=== PATIENT | female | born 1940 | race Caucasian/White ===

== ENCOUNTER → 2016-10-03 | Outpatient (CLI) | payer OTHER, MEDICARE ==
[~2016-10-03] MED LIST: AMB5 OR; DILT-113 PO; EPP3/2 IM; FRS/40 PO; GABA-112 PO; LORA-741 PO; PRAV20TA PO; SERT-234 PO; TRAM-10 PO
[2016-10-03 13:27] LABS: ALT/SGPT 16 U/L (12-78); BLOOD UREA NITROGEN 34 mg/dl (7-18); BUN/CREATININE RATIO 28.3 (10-20); CALCIUM 9.6 mg/dl (8.5-10.1); CARBON DIOXIDE 30 mmol/L (21-32); CHLORIDE 105 mmol/L (98-107); CHOLESTEROL 200 mg/dl (0-200); GLUCOSE 72 mg/dl (70-99); POTASSIUM 4.5 mmol/L (3.5-5.1); SODIUM 141 mmol/L (136-145)
[2016-10-03 13:37] LABS: ALB/GLOB RATIO 0.8 (0.9-2); ALKALINE PHOSPHATASE 104 U/L (45-117); AST/SGOT 18 U/L (15-37); CHOLESTEROL/HDL RATIO 2.9; HDL CHOLESTEROL 68 mg/dl; LDL CHOLESTEROL CALCULATED 104 mg/dl; TRIGLYCERIDES 138 mg/dl (0-150); VERY LOW DENSITY LIPOPROT CALC 28 mg/dl
[2016-10-03 14:43] LABS: BASO % 0.6 %; BASO ABS # 0.04 K/uL (0-0.2); COMPLETE YES; EOS % 0.7 %; HEMATOCRIT 40.4 % (37-47); IG% 0.7 %; LYMPH % 33.7 %; LYMPH ABS # 2.27 K/uL (1.2-3.4); MEAN CELL VOLUME 93.5 fL (80-100); MEAN CORPUSCULAR HEMOGLOBIN 30.6 pg (25-34); MEAN CORPUSCULAR HGB CONC 32.7 g/dl (32-36); MEAN PLATELET VOLUME 10.3 fL (7.4-10.4); MONO % 7.3 %; PLATELET COUNT 287 K/uL (130-400); PLT ESTIMATE NORMAL; RED BLOOD COUNT 4.32 M/uL (4.2-5.4); WHITE BLOOD COUNT 6.73 K/uL (4.8-10.8)
== END | disposition home or self-care (01) ==
LOC: C.LABMFLN 10:03
PROVIDERS: ATTEND Family Medicine
DX: I10 Essential (primary) hypertension (principal); E78.5 Hyperlipidemia, unspecified

== ENCOUNTER → 2017-01-09 | Outpatient (CLI) | payer OTHER, MEDICARE | END | disposition home or self-care (01) | LOC: C.LABMFLN 08:23 | PROVIDERS: ATTEND Family Medicine | DX: R30.0 Dysuria (principal) ==

== ENCOUNTER 2017-09-29 14:10 | Inpatient (IN) | payer OTHER, MEDICARE ==
[~2017-09-29] VITALS: Ht 156.2 cm; Wt 118.6 kg
[2017-09-29] MEDS ORDERED: HYDROmorphone INJ 0.5 MG/0.5 ML SYR IV STA (14:42)
[2017-09-29] MEDS ORDERED: ONDANSETRON INJ 2 MG/ML 2 ML VIAL IV STA (14:42)
[2017-09-29 15:14] LABS: BASO % 0.5 %; BASO ABS # 0.03 K/uL (0-0.2); HEMATOCRIT 42.4 % (37-47); HEMOGLOBIN 14.1 g/dL (12.0-16.0); IG# 0.01 K/uL (0.00-0.02); LYMPH % 26.7 %; LYMPH ABS # 1.65 K/uL (1.2-3.4); MEAN CELL VOLUME 87.6 fL (80-100); MEAN CORPUSCULAR HEMOGLOBIN 29.1 pg (25-34); MEAN CORPUSCULAR HGB CONC 33.3 g/dl (32-36); MEAN PLATELET VOLUME 9.7 fL (7.4-10.4); MONO % 7.8 %; MONO ABS # 0.48 K/uL (0.11-0.59); NEUT % 64.8 %; NEUT ABS # 4.02 K/uL (1.4-6.5); PLATELET COUNT 295 K/uL (130-400); RED CELL DISTRIBUTION WIDTH CV 13.9 % (11.5-14.5); RED CELL DISTRIBUTION WIDTH SD 44.8 fL (36.4-46.3); WHITE BLOOD COUNT 6.19 K/uL (4.8-10.8)
[2017-09-29 15:35] LABS: ALBUMIN 3.7 gm/dl (3.4-5.0); ALT/SGPT 16 U/L (12-78); AST/SGOT 17 U/L (15-37); BLOOD UREA NITROGEN 28 mg/dl (7-18); CALCIUM 9.7 mg/dl (8.5-10.1); CARBON DIOXIDE 26 mmol/L (21-32); CREATININE 1.18 mg/dl (0.60-1.20); GLUCOSE 97 mg/dl (70-99); LIPASE 74 U/L (73-393); POTASSIUM 4.1 mmol/L (3.5-5.1); SODIUM 136 mmol/L (136-145)
[2017-09-29 15:38] LABS: ALKALINE PHOSPHATASE 112 U/L (45-117); TOTAL PROTEIN 7.9 gm/dl (6.4-8.2)
--- NOTE | 2017-09-29 16:15 | DIAGNOSTIC IMAGING REPORT ---
CHEST ONE VIEW PORTABLE CLINICAL HISTORY: Acute change in mental status COMPARISON STUDY: No previous studies for comparison. FINDINGS: The heart is mildly enlarged. There is slight interstitial prominence without evidence of overt failure. There is no focal pulmonary consolidation. There are no pleural effusions. There are postsurgical changes right shoulder arthroplasty.[ IMPRESSION: 1. Mild cardiomegaly and interstitial prominence 2. No evidence of focal pulmonary consolidation Electronically signed by: Enmanuel Kay M.D. 09/29/2017 4:13 PM Dictated Date/Time: 09/29/2017 4:13 PM
--- NOTE | 2017-09-29 16:16 | DIAGNOSTIC IMAGING REPORT ---
PELVIS 1 OR 2 VIEW ROUTINE CLINICAL HISTORY: Right hip pain COMPARISON STUDY: No previous studies for comparison. FINDINGS: Degenerative changes are present within the lower lumbar spine. No fractures are visualized. The joint spaces of each hip appear relatively well preserved for age. No fractures are evident. IMPRESSION: 1. No evidence of fracture. 2. No erosive or destructive changes are visualized Electronically signed by: Enmanuel Kay M.D. 09/29/2017 4:14 PM Dictated Date/Time: 09/29/2017 4:13 PM
--- NOTE | 2017-09-29 16:17 | DIAGNOSTIC IMAGING REPORT ---
LUMBAR SPINE 2 OR 3 VIEWS CLINICAL HISTORY: lower back pain COMPARISON STUDY: No previous studies for comparison. FINDINGS: No acute fractures are visualized. There is marked disc space narrowing at the L4-5 level. There is a grade 2 spondylolisthesis of L4 on L5. IMPRESSION: 1. No acute fractures 2. Grade 2 spondylolisthesis of L4 on L5 3. Disc space narrowing at the L4-5 level Electronically signed by: Enmanuel Kay M.D. 09/29/2017 4:15 PM Dictated Date/Time: 09/29/2017 4:14 PM
--- NOTE | 2017-09-29 16:18 | DIAGNOSTIC IMAGING REPORT ---
R FEMUR 2 VIEWS ROUTINE CLINICAL HISTORY: Right femur pain COMPARISON: None. DISCUSSION: No fractures are visualized. There are no dislocations. No destructive lesions are evident. There are postsurgical changes of a right knee arthroplasty. IMPRESSION: 1. Postsurgical changes 2. No fractures identified Electronically signed by: Enmanuel Kay M.D. 09/29/2017 4:16 PM Dictated Date/Time: 09/29/2017 4:16 PM
--- NOTE | 2017-09-29 17:24 | DIAGNOSTIC IMAGING REPORT ---
CT HEAD WITHOUT CONTRAST (CT) CLINICAL HISTORY: Acute change in mental status COMPARISON STUDY: No previous studies for comparison. TECHNIQUE: Axial CT of the brain is performed from the vertex to the skull base. IV contrast was not administered for this examination. A dose lowering technique was utilized adhering to the principles of ALARA. CT DOSE: 869.01 mGy.cm FINDINGS: No intra or extra-axial mass lesions are visualized. There is no CT evidence of acute cortical infarction. There is no evidence of midline shift. There is no acute hemorrhage. No calvarial fractures are visualized. There are moderate white matter hypodensities likely on a small vessel basis. There is no evidence of pathologic ventricular dilatation. There is mucosal disease within the sphenoid sinus. IMPRESSION: 1. No acute intracranial findings 2. Moderate white matter hypodensities likely on a small vessel basis 3. Sphenoid sinus mucosal thickening Electronically signed by: Enmanuel Kay M.D. 09/29/2017 5:23 PM Dictated Date/Time: 09/29/2017 5:21 PM
--- NOTE | 2017-09-29 17:35 | DIAGNOSTIC IMAGING REPORT ---
LUMBAR SPINE W/O CONTRAST CLINICAL HISTORY: 76 years-old Female with lower back pain . Acute low back pain without known injury COMPARISON: Lumbar spine radiographs 09/29/2017, MRI lumbar spine 01/16/2015. TECHNIQUE: Multiplanar, multi sequence MRI of the lumbar spine was performed without intravenous contrast. FINDINGS: Study is motion degraded. Patient obesity is noted. T2 hyperintense lesions of the left kidney are seen measuring up to 4.0 cm, possibly reflecting renal cysts. No aortic aneurysm identified. No pathologic adenopathy is seen. There is dextroscoliosis of the lumbar spine. 8 mm anterolisthesis L4 on L5 is unchanged. Endplate degenerative changes at the L4-L5 level also appears unchanged. No acute fracture or subluxation identified. 11 mm synovial cyst is noted posterior to the right L4-L5 facet. Signal within the imaged thoracic spinal cord is within normal limits. Conus medullaris terminates at the L1 level. Cauda equina appear unremarkable. The axial images are severely motion degraded. Gallbladder appears distended. T12-L1: Mild intervertebral disc space narrowing with posterior spondylitic spurring and moderate circumferential annular disc bulge causing mild central canal narrowing, this appears to have slightly progressed. There is also moderate facet arthrosis at this level. L1-L2: Mild intervertebral disc space narrowing with posterior spondylitic spurring, small circumferential annular disc bulge with moderate facet arthrosis and ligament of flavum thickening. Flattening of the ventral thecal sac without significant central canal stenosis. Mild bilateral foraminal narrowing. No significant change. L2-L3: Mild intervertebral disc space narrowing with posterior spondylitic spurring and small to moderate circumferential annular disc bulge and ligament of flavum thickening. Moderate facet arthropathy. There is flattening of the ventral thecal sac without significant central canal narrowing. There is moderate bilateral foraminal narrowing, not significantly change. L3-L4: Mild intervertebral disc space narrowing with posterior spondylitic spurring and circumferential annular disc bulge. Moderate facet arthrosis with ligamentum flavum thickening. Mild central canal, severe right and moderate to severe left foraminal stenosis. L4-L5: Moderate intervertebral disc space narrowing with posterior spondylitic spurring and disc space uncovering, possibly with central disc protrusion, evaluation limited secondary to motion artifact. Severe facet arthrosis and ligamentum flavum thickening with severe central canal narrowing and severe bilateral foraminal narrowing. L5-S1: Mild intervertebral disc space narrowing with spondylitic spurring, small posterior disc bulge and moderate facet arthrosis with ligamentum flavum thickening. No central canal stenosis. There is moderate bilateral foraminal narrowing, mildly worsened. IMPRESSION: 1. Very limited study secondary to patient motion. No acute fracture or subluxation identified. 2. 8 mm anterolisthesis L4 on L5 is unchanged, likely secondary to long-standing facet arthropathy. There is severe central canal with severe bilateral foraminal stenosis at this level. 3. Additional discogenic degenerative changes as described in detail above. The above report was generated using voice recognition software. It may contain grammatical, syntax or spelling errors. Electronically signed by: Juan Walker M.D. 09/29/2017 5:34 PM Dictated Date/Time: 09/29/2017 5:23 PM
--- NOTE | 2017-09-29 18:26 | EMERGENCY ROOM VISIT NOTE ---
History Report prepared by Veronica: Maria E Mancuso Under the Supervision of: Dr. Jovanny Goodrich D.O. First contact with patient: 14:25 Chief Complaint: PAIN (GENERALIZED) Stated Complaint: FOOT PAIN History of Present Illness The patient is a 76 year old female who presents to the Emergency Room with complaints of worsening right sided back pain starting 3 months ago radiating into her right leg. She was sent to the ED by her PCP. The pain goes down to her foot and up into her neck. The pain worsens with the cold. The patient has been diagnosed with spinal stenosis and is scheduled to see pain management next month. The patient's sister is concerned because she has seems to have more discomfort and has had some confusion recently. The patient is usually able to take her medications as directed on her own, but yesterday/today the patient's sister had to help her with her medications. Sister notes that she has been fairly confused throughout today and yesterday. Patient does live at home alone. She denies any abdominal pain, chest pain, numbness, or weakness. The patient ambulates with a walker. She denies any history of diabetes. Source of History: patient, sibling Onset: 3 months ago Position: back (right) Quality: other (pain) Timing: worsening Modifying Factors (Worsening): other (cold) Associated Symptoms: No chest pain, No abdominal pain, No weakness, No numbness Review of Systems See HPI for pertinent positives & negatives. A total of 10 systems reviewed and were otherwise negative. Past Medical & Surgical Medical Problems: (1) Bilateral lower leg cellulitis (2) Hyperlipidemia (3) Hypertension Surgical Problems: (1) H/O shoulder replacement (2) History of knee replacement (3) S/P tonsillectomy and adenoidectomy Family History FH: hyperlipidemia Hypertension Social History Smoking Status: Never Smoker Marital Status: single Housing Status: lives alone Occupation Status: retired Current/Historical Medications Scheduled Diltiazem Hcl Ext Rel (Tiazac), 180 MG PO DAILY Epinephrine (Epipen), 0.3 MG IM UD Furosemide (Lasix), 40 MG PO DAILY Gabapentin (Neurontin), 200 MG PO TID Lorazepam (Ativan), 0.5 MG PO DIRECTED Pravastatin (Pravachol ), 80 MG PO HS Sertraline (Zoloft), 100 MG PO DAILY Zolpidem Tartrate (Zolpidem Tartrate), 5 MG OR HS Scheduled PRN Tramadol (Ultram), 50 MG PO Q4H PRN for Pain Allergies Coded Allergies: Morphine (Unverified Allergy, Severe, SHORTNESS OF BREATH, 09/29/17) Acetaminophen (Unverified Allergy, Intermediate, RASH, 09/29/17) Cephalexin (Unverified Allergy, Intermediate, RASH, 09/29/17) Hydrocodone (Unverified Allergy, Intermediate, RASH, 09/29/17) Oxaprozin (Unverified Allergy, Intermediate, RASH, 09/29/17) Sulindac (Unverified Allergy, Intermediate, RASH, 09/29/17) Lovastatin (Unverified Allergy, Mild, GI SYMPTOMS, 09/29/17) Vancomycin (Unverified Allergy, Unknown, kidney failure, 09/29/17) Physical Exam Vital Signs Date Time Temp Pulse Resp B/P (MAP) Pulse Ox O2 Delivery O2 Flow Rate FiO2 09/29/17 17:30 95 22 153/82 91 Room Air 09/29/17 14:18 36.7 93 24 95/66 96 Room Air Physical Exam GENERAL: Sitting up in bed, slightly confused, mild distress, holding right lower back EYE EXAM: normal conjunctiva. OROPHARYNX: no exudate, no erythema, lips, buccal mucosa, and tongue normal and mucous membranes are moist NECK: supple, no nuchal rigidity, no adenopathy, non-tender LUNGS: Distant at bilateral bases. Normal chest wall mechanics HEART: no murmurs, S1 normal and S2 normal ABDOMEN: abdomen soft, non-tender, normo-active bowel sounds, no masses, no rebound or guarding. BACK: Back is symmetrical on inspection and there is no deformity, no midline tenderness, no CVA tenderness. Acute reproducible tenderness throughout right gluteus tracking through right posterior thigh. SKIN: no rashes and no bruising UPPER EXTREMITIES: upper extremities are grossly normal. LOWER EXTREMITIES: No pitting edema. Flexion extension hip, knee, ankle, EHL 5/ 5 bilaterally. Gross sensation intact. DP 2/4. NEURO EXAM: Extremely anxious, intermittently answering questions appropriately , oriented to person and place, but confused to recent events/current situation , cranial nerves II-XII grossly intact, normal speech, no gross weakness of arms. Medical Decision & Procedures ER Provider Diagnostic Interpretation: Radiology results as stated below per my review and the radiologist's interpretation: PELVIS 1 OR 2 VIEW ROUTINE CLINICAL HISTORY: Right hip pain COMPARISON STUDY: No previous studies for comparison. FINDINGS: Degenerative changes are present within the lower lumbar spine. No fractures are visualized. The joint spaces of each hip appear relatively well preserved for age. No fractures are evident. IMPRESSION: 1. No evidence of fracture. 2. No erosive or destructive changes are visualized Electronically signed by: Enmanuel Kay M.D. 09/29/2017 4:14 PM Dictated Date/Time: 09/29/2017 4:13 PM LUMBAR SPINE 2 OR 3 VIEWS CLINICAL HISTORY: lower back pain COMPARISON STUDY: No previous studies for comparison. FINDINGS: No acute fractures are visualized. There is marked disc space narrowing at the L4-5 level. There is a grade 2 spondylolisthesis of L4 on L5. IMPRESSION: 1. No acute fractures 2. Grade 2 spondylolisthesis of L4 on L5 3. Disc space narrowing at the L4-5 level Electronically signed by: Enmanuel Kay M.D. 09/29/2017 4:15 PM Dictated Date/Time: 09/29/2017 4:14 PM R FEMUR 2 VIEWS ROUTINE CLINICAL HISTORY: Right femur pain COMPARISON: None. DISCUSSION: No fractures are visualized. There are no dislocations. No destructive lesions are evident. There are postsurgical changes of a right knee arthroplasty. IMPRESSION: 1. Postsurgical changes 2. No fractures identified Electronically signed by: Enmanuel Kay M.D. 09/29/2017 4:16 PM Dictated Date/Time: 09/29/2017 4:16 PM CHEST ONE VIEW PORTABLE CLINICAL HISTORY: Acute change in mental status COMPARISON STUDY: No previous studies for comparison. FINDINGS: The heart is mildly enlarged. There is slight interstitial prominence without evidence of overt failure. There is no focal pulmonary consolidation. There are no pleural effusions. There are postsurgical changes right shoulder arthroplasty.[ IMPRESSION: 1. Mild cardiomegaly and interstitial prominence 2. No evidence of focal pulmonary consolidation Electronically signed by: Enmanuel Kay M.D. 09/29/2017 4:13 PM Dictated Date/Time: 09/29/2017 4:13 PM LUMBAR SPINE W/O CONTRAST CLINICAL HISTORY: 76 years-old Female with lower back pain . Acute low back pain without known injury COMPARISON: Lumbar spine radiographs 09/29/2017, MRI lumbar spine 01/16/2015. TECHNIQUE: Multiplanar, multi sequence MRI of the lumbar spine was performed without intravenous contrast. FINDINGS: Study is motion degraded. Patient obesity is noted. T2 hyperintense lesions of the left kidney are seen measuring up to 4.0 cm, possibly reflecting renal cysts. No aortic aneurysm identified. No pathologic adenopathy is seen. There is dextroscoliosis of the lumbar spine. 8 mm anterolisthesis L4 on L5 is unchanged. Endplate degenerative changes at the L4-L5 level also appears unchanged. No acute fracture or subluxation identified. 11 mm synovial cyst is noted posterior to the right L4-L5 facet. Signal within the imaged thoracic spinal cord is within normal limits. Conus medullaris terminates at the L1 level. Cauda equina appear unremarkable. The axial images are severely motion degraded. Gallbladder appears distended. T12-L1: Mild intervertebral disc space narrowing with posterior spondylitic spurring and moderate circumferential annular disc bulge causing mild central canal narrowing, this appears to have slightly progressed. There is also moderate facet arthrosis at this level. L1-L2: Mild intervertebral disc space narrowing with posterior spondylitic spurring, small circumferential annular disc bulge with moderate facet arthrosis and ligament of flavum thickening. Flattening of the ventral thecal sac without significant central canal stenosis. Mild bilateral foraminal narrowing. No significant change. L2-L3: Mild intervertebral disc space narrowing with posterior spondylitic spurring and small to moderate circumferential annular disc bulge and ligament of flavum thickening. Moderate facet arthropathy. There is flattening of the ventral thecal sac without significant central canal narrowing. There is moderate bilateral foraminal narrowing, not significantly change. L3-L4: Mild intervertebral disc space narrowing with posterior spondylitic spurring and circumferential annular disc bulge. Moderate facet arthrosis with ligamentum flavum thickening. Mild central canal, severe right and moderate to severe left foraminal stenosis. L4-L5: Moderate intervertebral disc space narrowing with posterior spondylitic spurring and disc space uncovering, possibly with central disc protrusion, evaluation limited secondary to motion artifact. Severe facet arthrosis and ligamentum flavum thickening with severe central canal narrowing and severe bilateral foraminal narrowing. L5-S1: Mild intervertebral disc space narrowing with spondylitic spurring, small posterior disc bulge and moderate facet arthrosis with ligamentum flavum thickening. No central canal stenosis. There is moderate bilateral foraminal narrowing, mildly worsened. IMPRESSION: 1. Very limited study secondary to patient motion. No acute fracture or subluxation identified. 2. 8 mm anterolisthesis L4 on L5 is unchanged, likely secondary to long-standing facet arthropathy. There is severe central canal with severe bilateral foraminal stenosis at this level. 3. Additional discogenic degenerative changes as described in detail above. The above report was generated using voice recognition software. It may contain grammatical, syntax or spelling errors. Electronically signed by: Juan Walker M.D. 09/29/2017 5:34 PM Dictated Date/Time: 09/29/2017 5:[address] HEAD WITHOUT CONTRAST (CT) CLINICAL HISTORY: Acute change in mental status COMPARISON STUDY: No previous studies for comparison. TECHNIQUE: Axial CT of the brain is performed from the vertex to the skull base. IV contrast was not administered for this examination. A dose lowering technique was utilized adhering to the principles of ALARA. CT DOSE: 869.01 mGy.cm FINDINGS: No intra or extra-axial mass lesions are visualized. There is no CT evidence of acute cortical infarction. There is no evidence of midline shift. There is no acute hemorrhage. No calvarial fractures are visualized. There are moderate white matter hypodensities likely on a small vessel basis. There is no evidence of pathologic ventricular dilatation. There is mucosal disease within the sphenoid sinus. IMPRESSION: 1. No acute intracranial findings 2. Moderate white matter hypodensities likely on a small vessel basis 3. Sphenoid sinus mucosal thickening Electronically signed by: Enmanuel Kay M.D. 09/29/2017 5:23 PM Dictated Date/Time: 09/29/2017 5:21 PM Laboratory Results 09/29/17 15:07 Red Blood Count 4.84, Mean Corpuscular Volume 87.6, Mean Corpuscular Hemoglobin 29.1, Mean Corpuscular Hemoglobin Concent 33.3, Mean Platelet Volume 9.7, Neutrophils (%) (Auto) 64.8, Lymphocytes (%) (Auto) 26.7, Monocytes (%) (Auto) 7.8, Eosinophils (%) (Auto) 0.0, Basophils (%) (Auto) 0.5, Neutrophils # (Auto) 4.02, Lymphocytes # (Auto) 1.65, Monocytes # (Auto) 0.48, Eosinophils # (Auto) 0.00, Basophils # (Auto) 0.03 09/29/17 15:07 Test 09/29/17 15:07 09/29/17 15:21 White Blood Count 6.19 K/uL (4.8-10.8) Red Blood Count 4.84 M/uL (4.2-5.4) Hemoglobin 14.1 g/dL (12.0-16.0) Hematocrit 42.4 % (37-47) Mean Corpuscular Volume 87.6 fL (80-100) Mean Corpuscular Hemoglobin 29.1 pg (25-34) Mean Corpuscular Hemoglobin Concent 33.3 g/dl (32-36) Platelet Count 295 K/uL (130-400) Mean Platelet Volume 9.7 fL (7.4-10.4) Neutrophils (%) (Auto) 64.8 % Lymphocytes (%) (Auto) 26.7 % Monocytes (%) (Auto) 7.8 % Eosinophils (%) (Auto) 0.0 % Basophils (%) (Auto) 0.5 % Neutrophils # (Auto) 4.02 K/uL (1.4-6.5) Lymphocytes # (Auto) 1.65 K/uL (1.2-3.4) Monocytes # (Auto) 0.48 K/uL (0.11-0.59) Eosinophils # (Auto) 0.00 K/uL (0-0.5) Basophils # (Auto) 0.03 K/uL (0-0.2) RDW Standard Deviation 44.8 fL (36.4-46.3) RDW Coefficient of Variation 13.9 % (11.5-14.5) Immature Granulocyte % (Auto) 0.2 % Immature Granulocyte # (Auto) 0.01 K/uL (0.00-0.02) Erythrocyte Sedimentation Rate 39 mm/hr (0-21) Anion Gap 9.0 mmol/L (3-11) Estimated GFR () 52.6 Estimated GFR (Non- 45.4 BUN/Creatinine Ratio 23.5 (10-20) Calcium Level 9.7 mg/dl (8.5-10.1) Total Bilirubin 0.8 mg/dl (0.2-1) Direct Bilirubin 0.2 mg/dl (0-0.2) Aspartate Amino Transf (AST/SGOT) 17 U/L (15-37) Alanine Aminotransferase (ALT/SGPT) 16 U/L (12-78) Alkaline Phosphatase 112 U/L (45-117) Total Protein 7.9 gm/dl (6.4-8.2) Albumin 3.7 gm/dl (3.4-5.0) Lipase 74 U/L (73-393) Urine Color YELLOW Urine Appearance CLEAR (CLEAR) Urine pH 8.5 (4.5-7.5) Urine Specific [place] 1.009 (1.000-1.030) Urine Protein NEG (NEG) Urine Glucose (UA) NEG (NEG) Urine Ketones NEG (NEG) Urine Occult Blood NEG (NEG) Urine Nitrite NEG (NEG) Urine Bilirubin NEG (NEG) Urine Urobilinogen NEG (NEG) Urine Leukocyte Esterase NEG (NEG) Urine WBC (Auto) 0 /hpf (0-5) Urine RBC (Auto) 0-4 /hpf (0-4) Urine Hyaline Casts (Auto) 1-5 /lpf (0-5) Urine Epithelial Cells (Auto) 0-5 /lpf (0-5) Urine Bacteria (Auto) NEG (NEG) Laboratory results per my review. Medications Administered Medications (Trade) Dose Ordered Sig/Aaron Route Start Time Stop Time Status Last Admin Dose Admin Hydromorphone HCl (Dilaudid Inj) 0.5 mg NOW STAT IV 09/29/17 14:42 09/29/17 14:44 DC 09/29/17 15:08 0.5 MG Ondansetron HCl (Zofran Inj) 4 mg NOW STAT IV 09/29/17 14:42 09/29/17 14:44 DC 09/29/17 15:08 4 MG ED Course ED COURSE: Vital signs were reviewed and showed hypotension. The patients medical record was reviewed The above diagnostic studies were performed and reviewed. ED treatments and interventions as stated above. 1430: The patient was evaluated in room A12A. A complete history and physical examination was performed. 1442: Zofran Inj 4 mg IV, Dilaudid Inj 0.5 mg IV. 1615: I discussed the patient's case with Dr. Armstrong, [facility] family medicine. She reports that the patient is normally awake, alert, and completely oriented. 1640: The patient is currently at [facility]. 1745: Upon reevaluation, the patient is stable. I discussed my findings with the patient and family and they understand and agree with the treatment plan. Based on the patients age, coexisting illnesses, exam and lab findings the decision to treat as an inpatient was made. The patient remained stable while under my care. The patient will be evaluated for further management. 1756: I reviewed the patient's case with Dr. Myles [facility] hospitalist. He will evaluate the patient for further management. Medical Decision Differential diagnoses includes but is not limited to lumbar radiculopathy, muscle strain, facture, cauda equina, mass, and disc herniation. Patient is a 76-year-old female who presents the ER for severe right-sided lower back pain radiating into her right leg. Patient was referred in by her primary care doctor for confusion. Patient has been intermittently rambling, unable to remember events and occurrences throughout the past 24-48 hours. 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 She denies any weakness or numbness to suggest cauda equina. CBC along with BMP, LFTs, bilirubin lipase was unremarkable. UA was negative. X-rays of the lumbar spine, pelvis, femur and chest x-ray were unremarkable. CT head performed secondary to the confusion shows a fair amount of white matter disease. Lumbar spine MRI shows no obvious infection but severe canal stenosis. Patient was given IV steroids and IV Dilaudid. She did feel better from this standpoint. Sister notes that she is still confused. Based on this and the pain as she is unable to care for herself at home felt it was reasonable to watch her overnight. She is unable to take anything else at home other than Ultram due to allergies discussed case with internal medicine for observation and they will evaluate the patient. Medication Reconcilliation Current Medication List: was personally reviewed by me Blood Pressure Screening Patient's blood pressure: Low blood pressure Consults Time Called: 161 Consulting Physician: Dr. Armstrong, [facility] family medicine Returned Call: [phone] I discussed the patient's case with her. She reports that the patient is normally awake, alert, and completely oriented. Additional Consults: Time Called: [phone] Consulted Physician: Dr. Myles [facility] hospitalist Returned Call: [phone] Additional Comments: I reviewed the patient's case with him. He will evaluate the patient for further management. Impression Primary Impression: Altered mental status Additional Impression: Back pain Scribe Attestation The scribe's documentation has been prepared under my direction and personally reviewed by me in its entirety. I confirm that the note above accurately reflects all work, treatment, procedures, and medical decision making performed by me. Departure Information Dispostion Being Evaluated By Hospitalist Referrals Sofiya Armstrong M.D. (PCP) Patient Instructions My [facility] Problem Qualifiers Primary Impression: Altered mental status Altered mental status type: unspecified Qualified Codes: R41.82 - Altered mental status, unspecified Additional Impression: Back pain Back pain location: low back pain Chronicity: acute Back pain laterality: right Sciatica presence: with sciatica Sciatica laterality: sciatica of right side Qualified Codes: M54.41 - Lumbago with sciatica, right side
[2017-09-29] MEDS ORDERED: ONDANSETRON INJ 2 MG/ML 2 ML VIAL IV PRN (19:00)
[2017-09-29] MEDS ORDERED: ALUMINUM/MAGNESIUM/SIMETH (MAALOX MAX) 30 ML UDC PO PRN (19:00)
[2017-09-29] MEDS ORDERED: POLYETHYLENE (MIRALAX) 17 GM PACK PO PRN (19:00)
[2017-09-29] MEDS ORDERED: MAGNESIUM HYDROXIDE SUSP 30 ML UDC PO PRN (19:00)
--- NOTE | 2017-09-29 19:17 | History and Physical ---
History & Physical Date & Time of Service: Sep 29, 2017 at 19:07 Chief Complaint: Foot Pain Primary Care Physician: Sofiya Armstrong M.D. History of Present Illness Source: patient Ms. Bean is a 76 y/o female with PMHx of HTN, CKD Stage III, HLD, Sacral Ileitis, Spinal Stenosis with Radiculopathy who presents to the ED due to AMS and pain. Patient is a poor historian and family has already left for the evening. Most of the pertinent information has been obtained from the ED note and review of outpatient notes. Patient is alert and oriented x 3 with speech clear but is rambling and not forming complete sentences or finishing thoughts. She is followed by pain management with review of their note suggests that her Gabapentin was increased to 300 mg TID on 09/23. She is also on Ultram. She cannot tell you how many doses she takes in the day. Kept saying to just refer to how Dr. Armstrong wrote the prescription. Then said she thinks "they are taking two pills in the morning and two at night". She then was fixating on something for her legs and hips that she can only get once every 2 years. Possibly referring to injections as she said she is due for one soon. Thinks she is supposed to get an injection next month. Per pain management note, it appears she is to get an injection. She was given Dilaudid in the ED which may be exacerbating her symptoms as she is also reporting feeling very tired at this point. Appears to have some psychomotor agitation as she is very rather jittery appearing. Complaining of feeling hot and sweaty. Also reporting insomnia but can't really state if this is related to her pain or not but states it is from something else but doesn't elaborate. Per note, this has been chronic pain in the low back and radiates into legs. She states it sometimes goes to the knee and foot but varies. Appears to also be complaining of neuropathy pains in her feet but again not completing sentences or thoughts. She is also complaining of R shoulder pain which she did have this replaced in the past. Again can't really further evaluate this pain. It appears she normally can manage her own medications but her sister has had to help her recently due to this confusion. Patient lives alone in a two story home but has set-up on the first floor and it appears has home nursing coming to her home. She normally ambulates with a walker but does report some difficulty walking lately due to this pain. Past Medical/Surgical History Medical Problems: (1) Angioedema (2) Bilateral lower leg cellulitis (3) Depression (4) Edema (5) Generalized anxiety disorder (6) Generalized osteoarthritis (7) Hyperlipidemia (8) Hypertension (9) Insomnia (10) Left leg cellulitis (11) Obesity (12) Urinary frequency Surgical Problems: (1) H/O shoulder replacement (2) History of knee replacement (3) S/P tonsillectomy and adenoidectomy Family History FH: hyperlipidemia Hypertension Social History Smoking Status: Never Smoker Smokeless Tobacco Use: No Alcohol Use: none Drug Use: none Marital Status: single Housing status: lives alone Occupational Status: retired Allergies Coded Allergies: Morphine (Verified Allergy, Severe, SHORTNESS OF BREATH, 09/29/17) Acetaminophen (Verified Allergy, Intermediate, RASH, 09/29/17) Cephalexin (Verified Allergy, Intermediate, RASH, 09/29/17) Hydrocodone (Verified Allergy, Intermediate, RASH, 09/29/17) Oxaprozin (Verified Allergy, Intermediate, RASH, 09/29/17) Sulindac (Verified Allergy, Intermediate, RASH, 09/29/17) Vancomycin (Verified Allergy, Unknown, kidney failure, 09/29/17) Lovastatin (Verified Adverse Reaction, Mild, GI SYMPTOMS, 09/29/17) Home Medications Scheduled Diltiazem Hcl Ext Rel (Tiazac), 180 MG PO DAILY Epinephrine (Epipen), 0.3 MG IM UD Furosemide (Lasix), 40 MG PO DAILY Gabapentin (Neurontin), 200 MG PO TID Lorazepam (Ativan), 0.5 MG PO DIRECTED Pravastatin (Pravachol ), 80 MG PO HS Sertraline (Zoloft), 100 MG PO DAILY Zolpidem Tartrate (Zolpidem Tartrate), 5 MG OR HS Scheduled PRN Tramadol (Ultram), 50 MG PO Q4H PRN for Pain Review of Systems Constitutional: + sweats, + fatigue, No fever, No chills ENT: No nasal symptoms, No sore throat Respiratory: No cough, No shortness of breath Cardiovascular: No chest pain Abdomen: No pain, No nausea, No vomiting, No diarrhea, No constipation Musculoskeletal: + problem reported (low back pain; hip pain b/l; intermittent knee pain b/l; and intermittent foot pain) Genitourinary - Female: No dysuria Hematologic / Lymphatic: No abnormal bleeding/bruising Integumentary: + rash (under abdominal folds) Physical Exam Vital Signs Date Time Temp Pulse Resp B/P (MAP) Pulse Ox O2 Delivery O2 Flow Rate FiO2 09/29/17 18:56 91 18 138/79 90 Room Air 09/29/17 17:30 95 22 153/82 91 Room Air 09/29/17 14:18 36.7 93 24 95/66 96 Room Air General Appearance: WD/WN, no apparent distress, + obese Head: normocephalic, atraumatic Eyes: sclerae normal ENT: hearing grossly normal, pharynx normal, + pertinent finding (dentures) Neck: supple, no JVD, trachea midline Respiratory/Chest: lungs clear, normal breath sounds, no respiratory distress, no accessory muscle use Cardiovascular: regular rate, rhythm, no gallop, no murmur Abdomen/GI: normal bowel sounds, non tender, soft Extremities/Musculoskelatal: + pertinent finding (chronic venous changes with L worse than R; dried hardened skin with yellow/cream colored skin with darked skin underneath) Neurologic/Psych: alert, oriented x 3 (however is rambling and confused; not forming complete thoughts and sentences), + pertinent finding (no focal neurological deficits but mild weakness of RUE that she relates pain with testing) Skin: warm/dry, + pertinent finding (mild erythema in skin folds) Diagnostics Laboratory Results Results Past 24 Hours Test 09/29/17 15:07 09/29/17 15:21 09/29/17 18:55 Range/Units White Blood Count 6.19 4.8-10.8 K/uL Red Blood Count 4.84 4.2-5.4 M/uL Hemoglobin 14.1 12.0-16.0 g/dL Hematocrit 42.4 37-47 % Mean Corpuscular Volume 87.6 80-100 fL Mean Corpuscular Hemoglobin 29.1 25-34 pg Mean Corpuscular Hemoglobin Concent 33.3 32-36 g/dl Platelet Count 295 130-400 K/uL Mean Platelet Volume 9.7 7.4-10.4 fL Neutrophils (%) (Auto) 64.8 % Lymphocytes (%) (Auto) 26.7 % Monocytes (%) (Auto) 7.8 % Eosinophils (%) (Auto) 0.0 % Basophils (%) (Auto) 0.5 % Neutrophils # (Auto) 4.02 1.4-6.5 K/uL Lymphocytes # (Auto) 1.65 1.2-3.4 K/uL Monocytes # (Auto) 0.48 0.11-0.59 K/uL Eosinophils # (Auto) 0.00 0-0.5 K/uL Basophils # (Auto) 0.03 0-0.2 K/uL RDW Standard Deviation 44.8 36.4-46.3 fL RDW Coefficient of Variation 13.9 11.5-14.5 % Immature Granulocyte % (Auto) 0.2 % Immature Granulocyte # (Auto) 0.01 0.00-0.02 K/uL Erythrocyte Sedimentation Rate 39 0-21 mm/hr Sodium Level 136 136-145 mmol/L Potassium Level 4.1 3.5-5.1 mmol/L Chloride Level 101 98-107 mmol/L Carbon Dioxide Level 26 21-32 mmol/L Anion Gap 9.0 3-11 mmol/L Blood Urea Nitrogen 28 7-18 mg/dl Creatinine 1.18 0.60-1.20 mg/dl Estimated GFR () 52.6 Estimated GFR (Non- 45.4 BUN/Creatinine Ratio 23.5 10-20 Random Glucose 97 70-99 mg/dl Calcium Level 9.7 8.5-10.1 mg/dl Total Bilirubin 0.8 0.2-1 mg/dl Direct Bilirubin 0.2 0-0.2 mg/dl Aspartate Amino Transf (AST/SGOT) 17 15-37 U/L Alanine Aminotransferase (ALT/SGPT) 16 12-78 U/L Alkaline Phosphatase 112 45-117 U/L Total Protein 7.9 6.4-8.2 gm/dl Albumin 3.7 3.4-5.0 gm/dl Lipase 74 73-393 U/L Urine Color YELLOW Urine Appearance CLEAR CLEAR Urine pH 8.5 4.5-7.5 Urine Specific Cedar 1.009 1.000-1.030 Urine Protein NEG NEG Urine Glucose (UA) NEG NEG Urine Ketones NEG NEG Urine Occult Blood NEG NEG Urine Nitrite NEG NEG Urine Bilirubin NEG NEG Urine Urobilinogen NEG NEG Urine Leukocyte Esterase NEG NEG Urine WBC (Auto) 0 0-5 /hpf Urine RBC (Auto) 0-4 0-4 /hpf Urine Hyaline Casts (Auto) 1-5 0-5 /lpf Urine Epithelial Cells (Auto) 0-5 0-5 /lpf Urine Bacteria (Auto) NEG NEG Diagnostic Radiology CT HEAD WITHOUT CONTRAST (CT) FINDINGS: No intra or extra-axial mass lesions are visualized. There is no CT evidence of acute cortical infarction. There is no evidence of midline shift. There is no acute hemorrhage. No calvarial fractures are visualized. There are moderate white matter hypodensities likely on a small vessel basis. There is no evidence of pathologic ventricular dilatation. There is mucosal disease within the sphenoid sinus. IMPRESSION: 1. No acute intracranial findings 2. Moderate white matter hypodensities likely on a small vessel basis 3. Sphenoid sinus mucosal thickening LUMBAR SPINE W/O CONTRAST FINDINGS: Study is motion degraded. Patient obesity is noted. T2 hyperintense lesions of the left kidney are seen measuring up to 4.0 cm, possibly reflecting renal cysts. No aortic aneurysm identified. No pathologic adenopathy is seen. There is dextroscoliosis of the lumbar spine. 8 mm anterolisthesis L4 on L5 is unchanged. Endplate degenerative changes at the L4-L5 level also appears unchanged. No acute fracture or subluxation identified. 11 mm synovial cyst is noted posterior to the right L4-L5 facet. Signal within the imaged thoracic spinal cord is within normal limits. Conus medullaris terminates at the L1 level. Cauda equina appear unremarkable. The axial images are severely motion degraded. Gallbladder appears distended. T12-L1: Mild intervertebral disc space narrowing with posterior spondylitic spurring and moderate circumferential annular disc bulge causing mild central canal narrowing, this appears to have slightly progressed. There is also moderate facet arthrosis at this level. L1-L2: Mild intervertebral disc space narrowing with posterior spondylitic spurring, small circumferential annular disc bulge with moderate facet arthrosis and ligament of flavum thickening. Flattening of the ventral thecal sac without significant central canal stenosis. Mild bilateral foraminal narrowing. No significant change. L2-L3: Mild intervertebral disc space narrowing with posterior spondylitic spurring and small to moderate circumferential annular disc bulge and ligament of flavum thickening. Moderate facet arthropathy. There is flattening of the ventral thecal sac without significant central canal narrowing. There is moderate bilateral foraminal narrowing, not significantly change. L3-L4: Mild intervertebral disc space narrowing with posterior spondylitic spurring and circumferential annular disc bulge. Moderate facet arthrosis with ligamentum flavum thickening. Mild central canal, severe right and moderate to severe left foraminal stenosis. L4-L5: Moderate intervertebral disc space narrowing with posterior spondylitic spurring and disc space uncovering, possibly with central disc protrusion, evaluation limited secondary to motion artifact. Severe facet arthrosis and ligamentum flavum thickening with severe central canal narrowing and severe bilateral foraminal narrowing. L5-S1: Mild intervertebral disc space narrowing with spondylitic spurring, small posterior disc bulge and moderate facet arthrosis with ligamentum flavum thickening. No central canal stenosis. There is moderate bilateral foraminal narrowing, mildly worsened. IMPRESSION: 1. Very limited study secondary to patient motion. No acute fracture or subluxation identified. 2. 8 mm anterolisthesis L4 on L5 is unchanged, likely secondary to long-standing facet arthropathy. There is severe central canal with severe bilateral foraminal stenosis at this level. 3. Additional discogenic degenerative changes as described in detail above. CHEST ONE VIEW PORTABLE CLINICAL HISTORY: Acute change in mental status COMPARISON STUDY: No previous studies for comparison. FINDINGS: The heart is mildly enlarged. There is slight interstitial prominence without evidence of overt failure. There is no focal pulmonary consolidation. There are no pleural effusions. There are postsurgical changes right shoulder arthroplasty.[ IMPRESSION: 1. Mild cardiomegaly and interstitial prominence 2. No evidence of focal pulmonary consolidation R FEMUR 2 VIEWS ROUTINE DISCUSSION: No fractures are visualized. There are no dislocations. No destructive lesions are evident. There are postsurgical changes of a right knee arthroplasty. IMPRESSION: 1. Postsurgical changes 2. No fractures identified LUMBAR SPINE 2 OR 3 VIEWS FINDINGS: No acute fractures are visualized. There is marked disc space narrowing at the L4-5 level. There is a grade 2 spondylolisthesis of L4 on L5. IMPRESSION: 1. No acute fractures 2. Grade 2 spondylolisthesis of L4 on L5 3. Disc space narrowing at the L4-5 level PELVIS 1 OR 2 VIEW ROUTINE FINDINGS: Degenerative changes are present within the lower lumbar spine. No fractures are visualized. The joint spaces of each hip appear relatively well preserved for age. No fractures are evident. IMPRESSION: 1. No evidence of fracture. 2. No erosive or destructive changes are visualized Impression Assessment and Plan Ms. Bean is a 76 y/o female with PMHx of HTN, CKD Stage III, HLD, Sacral Ileitis, Spinal Stenosis with Radiculopathy who presents to the ED due to AMS and pain Possible Toxic Encephalopathy 2/2 Medications vs Other Encephalopathy: - No obvious source of infection - does have chronic venous stasis and skin compromise of lower extremities but does not appear acute; mild erythema under skin folds but again not significant for mentation changes - will consult wound care - Will admit to telemetry for cardiac monitoring to assess further - Appears euvolemic but will gently hydrate at 80 mL/hr - Hold Lasix, Gabapentin, Ativan, Tramadol, and Ambien at this time to further monitor mentation - Could consider steroids in AM pending pain - HTN and HLD: - Diltiazem 180 mg daily; Lasix is on hold with gentle hydration - Pravastatin 80 mg daily - may need to look in outpatient notes to see if this was recently added or increased to explain some musculoskeletal pain? Chronic Low Back Pain with Radiculopathy: - Patient follows with pain clinic and is due for an injection - Has multiple pain medication allergies but some are odd as acetaminophen when taking Vicodin? - Will give Lidoderm patch tonight and hold on further pain medication - if she does complain of pain could use Dilaudid but would recommend 0.25 mg to prevent worsening of mentation - Could consider steroids in AM pending pain - but will defer at this time to not allow this to affect mentation DVT Prophylaxis: Heparin Code Status: FULL RESUSCITATION Disposition: PT/OT evaluations - Given allergies and chronic nature of pain may need to consult pain management for recommendations PA Physician Supervision Note: I interviewed and examined the patient. Discussed with Verenice SALAMANCA and agree with findings and plan as documented in the note. Any exceptions or clarifications are listed here: None Some confusion. She suffers from chronic low back pain seeing pain management. She has multiple drug allergies to pain medications. Initially there is no obvious source of her confusion and her confusion is slightly improving throughout her hospital stay here in the ER. Her initial blood pressure was low this is improved with hydration this likely may be a result of some mild dehydration Patient is awake alert she is oriented to place and time she is no focal complaints other than chronic venous stasis dermatitis of her lower legs which is worse in the left leg and right her back pain she tells me is bouts similar for her Concern for toxic encephalopathy will hold any opiate opiate like pain medication using topical pain medicine of her back pain is a big issue in the morning she is already involved with pain management will consider consulting them. I have ordered a urine culture on presentation although UA is negative in case this could be from a UTI likely only PTOT eval in the morning to determine if she is fit for leaving we also get a skin care consult to look at her lower extremity dermatitis stasis Documented By: Rehan Myles Patient is here with Resuscitation Status VTE Prophylaxis Will order VTE Prophylaxis: Yes
[2017-09-29] MEDS ORDERED: LIDODERM (LIDOCAINE) PATCH 5% TD ONE (19:22)
[2017-09-29 20:45] VITALS: BP 125/80; PULSE 87; TEMP 37; O2SAT 92; Ht 156.2 cm; Wt 118.6 kg
[2017-09-29] MEDS: MICONAZOLE NITRATE POWDER 43 GM EXT SCH (21:42)
[2017-09-29] MEDS: SODIUM CHLORIDE 0.9% 1000ML 1,000 ML IV SCH (21:42)
[2017-09-29] MEDS: PRAVASTATIN SOD 40 MG TAB PO SCH (21:43)
[2017-09-29] MEDS ORDERED: IV FLUIDS COMPLETED PRN (21:45)
[2017-09-30] VITALS (9 sets, daily range): BP systolic 132–169; BP diastolic 64–92; PULSE 63–88; TEMP 36.4–36.8; O2SAT 90–95
[2017-09-30] MEDS: SERTRALINE HCL 100 MG TAB PO SCH (09:24)
[2017-09-30] MEDS: DILTIAZEM HCL (TIAzac) 180 MG CAPCR PO SCH (09:24)
[2017-09-30] MEDS: NYSTATIN POWDER 15GM BTL EXT SCH (09:25)
[2017-09-30] MEDS: MICONAZOLE NITRATE POWDER 43 GM EXT SCH ×2 (09:25→21:18)
[2017-09-30] MEDS: SODIUM CHLORIDE 0.9% 1000ML 1,000 ML IV SCH (10:51)
[2017-09-30] MEDS ORDERED: DEXAMETHASONE 4 MG TAB PO ONE (11:43)
[2017-09-30] MEDS: GABAPENTIN 300 MG CAP PO SCH ×2 (13:34→21:18)
--- NOTE | 2017-09-30 14:03 | Hospitalist Progress Note ---
Hospitalist Progress Note Date of Service Sep 30, 2017. (Rebeca Hoffman .ELBA) Subjective Pt evaluation today including: conversation w/ patient, physical exam, chart review, lab review, review of studies, review of inpatient medication list Voiding: no voiding problems Ms. Bean is oriented but forgetful and a poor historian. She is unable to remember how much of her medications she normally takes at home. Per her sister who is with her, her gabapentin was increased on the however she was never able to pick it up and has not had any since Friday. She also had a fall on Friday where she slid out of a chair and had to phone family to come and get her off of the floor. She continues to have left hip pain, she denies saddle anesthesia or incontinence. ROS Constitutional: no chills, aches, sweats or fever Respiratory: no sob,cough, sputum, or wheezing Cardiac: no chest pain, palpitations, edema, orthopnea or lightheadedness GI: no abdominal pain, nausea, vomiting, diarrhea or constipation : no dysuria or hesitancy Extremities: no joint pain or weakness Skin: no rash All other systems reviewed and negative (Rebeca Hoffman .ELBA) Medications Medications Administered Medications (Trade) Dose Ordered Sig/Aaron Route Start Time Stop Time Status Last Admin Dose Admin Hydromorphone HCl (Dilaudid Inj) 0.5 mg NOW STAT IV 09/29/17 14:42 09/29/17 14:44 DC 09/29/17 15:08 0.5 MG Ondansetron HCl (Zofran Inj) 4 mg NOW STAT IV 09/29/17 14:42 09/29/17 14:44 DC 09/29/17 15:08 4 MG Sodium Chloride 1,000 ml @ 80 mls/hr [id number] IV 09/29/17 20:30 09/30/17 21:29 09/30/17 10:51 80 MLS/HR Diltiazem HCl (TIAzac CAP) 180 mg DAILY PO 09/30/17 09:00 10/30/17 08:59 09/30/17 09:24 180 MG Pravastatin Sodium (Pravachol Tab) 80 mg HS PO 09/29/17 21:00 10/29/17 20:59 09/29/17 21:43 80 MG Sertraline HCl (Zoloft Tab) 100 mg DAILY PO 09/30/17 09:00 10/30/17 08:59 09/30/17 09:24 100 MG Miconazole Nitrate (Desenex Powder) 1 appln BID EXT 09/29/17 21:00 10/29/17 20:59 09/30/17 09:25 1 APPLN Lidocaine (Lidoderm Patch 5%) 1 patch 1922 ONCE TD 09/29/17 19:22 09/29/17 19:42 DC 09/29/17 20:04 1 PATCH Miscellaneous (Remove Lidoderm Patch) 1 ea DAILY@0900 N/A 09/30/17 09:00 10/30/17 08:59 09/30/17 09:22 1 EA Nystatin (Mycostatin Powder) 1 appln DAILY EXT 09/30/17 09:00 10/30/17 08:59 09/30/17 09:25 1 APPLN Dexamethasone (Decadron Tab) 4 mg 1143 ONCE PO 09/30/17 11:43 09/30/17 12:17 DC 09/30/17 13:34 4 MG Gabapentin (Neurontin Cap) 300 mg TID PO 09/30/17 14:00 10/30/17 13:59 09/30/17 13:34 300 MG (Rebeca Hoffman, ELBA) Objective Vital Signs Date Time Temp Pulse Resp B/P (MAP) Pulse Ox O2 Delivery O2 Flow Rate FiO2 09/30/17 12:00 Room Air 09/30/17 11:49 36.5 82 16 132/83 (99) 95 Room Air 09/30/17 08:57 95 Room Air 09/30/17 08:38 36.5 87 18 169/92 (117) 95 Room Air 09/30/17 08:15 Room Air 09/30/17 04:00 Room Air 09/30/17 04:00 36.4 88 18 157/78 (104) 90 Room Air 09/30/17 00:19 36.5 88 16 149/78 (101) 91 Room Air 09/30/17 00:00 Room Air 09/29/17 20:45 37.0 87 20 125/80 92 Room Air 09/29/17 19:28 95 20 164/72 91 09/29/17 18:56 91 18 138/79 90 Room Air 09/29/17 17:30 95 22 153/82 91 Room Air 09/29/17 14:18 36.7 93 24 95/66 96 Room Air (Rebeca Hoffman CRNP) Physical Exam Notes: General: no distress Eyes: normal inspection, PERLL Respiratory: chest non tender, clear to auscultation, normal breath sounds, no respiratory distress, no accessory muscle use Cardiac: regular rate and rhythm, no rub or gallop, no murmur, no edema, no jvd GI/: active bowel sounds, no abd pain or tenderness, soft, non distended Extremities: normal range of motion, normal strength, non tender Neuro/Psych: alert and oriented x 3, normal mood and affect Skin: lower extremity pvd with dry skin, left > right (Rebeca Hoffman CRNP) Laboratory Results Last 24 Hours Test 09/29/17 15:07 09/29/17 15:21 09/29/17 19:13 White Blood Count 6.19 K/uL Red Blood Count 4.84 M/uL Hemoglobin 14.1 g/dL Hematocrit 42.4 % Mean Corpuscular Volume 87.6 fL Mean Corpuscular Hemoglobin 29.1 pg Mean Corpuscular Hemoglobin Concent 33.3 g/dl Platelet Count 295 K/uL Mean Platelet Volume 9.7 fL Neutrophils (%) (Auto) 64.8 % Lymphocytes (%) (Auto) 26.7 % Monocytes (%) (Auto) 7.8 % Eosinophils (%) (Auto) 0.0 % Basophils (%) (Auto) 0.5 % Neutrophils # (Auto) 4.02 K/uL Lymphocytes # (Auto) 1.65 K/uL Monocytes # (Auto) 0.48 K/uL Eosinophils # (Auto) 0.00 K/uL Basophils # (Auto) 0.03 K/uL RDW Standard Deviation 44.8 fL RDW Coefficient of Variation 13.9 % Immature Granulocyte % (Auto) 0.2 % Immature Granulocyte # (Auto) 0.01 K/uL Erythrocyte Sedimentation Rate 39 mm/hr Sodium Level 136 mmol/L Potassium Level 4.1 mmol/L Chloride Level 101 mmol/L Carbon Dioxide Level 26 mmol/L Anion Gap 9.0 mmol/L Blood Urea Nitrogen 28 mg/dl Creatinine 1.18 mg/dl Estimated GFR () 52.6 Estimated GFR (Non- 45.4 BUN/Creatinine Ratio 23.5 Random Glucose 97 mg/dl Calcium Level 9.7 mg/dl Total Bilirubin 0.8 mg/dl Direct Bilirubin 0.2 mg/dl Aspartate Amino Transf (AST/SGOT) 17 U/L Alanine Aminotransferase (ALT/SGPT) 16 U/L Alkaline Phosphatase 112 U/L Total Protein 7.9 gm/dl Albumin 3.7 gm/dl Lipase 74 U/L Thyroid Stimulating Hormone (TSH) 1.200 uIu/ml Urine Color YELLOW Urine Appearance CLEAR Urine pH 8.5 Urine Specific [place] 1.009 Urine Protein NEG Urine Glucose (UA) NEG Urine Ketones NEG Urine Occult Blood NEG Urine Nitrite NEG Urine Bilirubin NEG Urine Urobilinogen NEG Urine Leukocyte Esterase NEG Urine WBC (Auto) 0 /hpf Urine RBC (Auto) 0-4 /hpf Urine Hyaline Casts (Auto) 1-5 /lpf Urine Epithelial Cells (Auto) 0-5 /lpf Urine Bacteria (Auto) NEG Vitamin B12 Level 368 pg/mL (Rebeca Hoffman, ELBA) Assessment and Plan Ms. Bean is a 76 y/o female with PMHx of HTN, CKD Stage III, HLD, Sacral Ileitis, Spinal Stenosis with Radiculopathy who presents to the ED due to AMS and pain Possible Toxic Encephalopathy 2/2 Medications vs Other Encephalopathy/ chronic back pain - No obvious source of infection - does have chronic venous stasis and skin compromise of lower extremities but does not appear acute; mild erythema under skin folds but again not significant for mentation changes - will consult wound care - Appears euvolemic and is taking po - dc IVF - Continue to hold Lasix, Ativan, Tramadol, and Ambien but restart gabapentin, continue lidoderm patch - start dexamethasone po 4mg bid - consult pain management - patient scheduled for outpatient injection in a month but hopefully she can get it while here HTN and HLD: - Diltiazem 180 mg daily; Lasix is on hold with gentle hydration - Continue pravastatin Dry skin - Eucerin cream DVT Prophylaxis: Heparin Code Status: FULL RESUSCITATION Disposition: PT/OT evaluations - patient will likely need some home health to help manage her medications as she is unable to remember how much she has been taking. PT recommends return home, awaiting OT eval - transfer to medical (Rebeca Hoffman ., ELBA) Reviewed: Pt Seen/Exam by Me (Esperanza Blevins MD) History VIDEO [employer]AME [employer] Supervision Note: I interviewed and examined the patient. Discussed with ELBA Hoffman and agree with findings and plan as documented in the note. Any exceptions or clarifications are listed here: Pt reports she is having right lower back pain with radiation into right buttocks and hip. She said that is what brought her into the hospital. SHe was without gabapentin for a few days prior to that due to refill issues. She denies headache, sore throat, fevers, cough, SOB, CP, abd pain, diarrhea, constipation, or urinary symptoms. Vitals reviewed Obese, lying flat in bed, talkative and slightly tangential but brings herself back around to topic appropriately RRR no mgr CTAB no wcr Abd +BS soft NT ND Ext chronic venous stasis changes, 1+ edema Neuro-moving all extremities, AAOx3, can name the months of the year backwards except missoctober 76 yo female with acute on chronic right lower back pain with radicular symptoms after being off gabapentin for 3 days, worsening confusion. Confusion may be due to withdrawal from gabapentin plus pain itself. Seems to be improved now, restarted gabapentin Await Pain Man consult Hopeful for dc to home with HH tomorrow Documented By: Esperanza Blevins (Esperanza Blevins MD)
[2017-09-30] MEDS ORDERED: NURSING DECISION MEDICATION ORDER SCH (16:30)
[2017-09-30] MEDS ORDERED: NURSING VERBAL MED ORDER ONE (16:45)
[2017-09-30] MEDS ORDERED: EUCERIN CR 120 GM JAR EXT PRN (17:00)
[2017-09-30] MEDS: LIDODERM (LIDOCAINE) PATCH 5% TD SCH (17:20)
[2017-09-30] MEDS ORDERED: LIDODERM (LIDOCAINE) PATCH 5% TD SCH (21:00)
[2017-09-30] MEDS: EUCERIN CR 120 GM JAR EXT SCH (21:18)
[2017-09-30] MEDS: PRAVASTATIN SOD 40 MG TAB PO SCH (21:19)
[2017-09-30] MEDS: DEXAMETHASONE 4 MG TAB PO SCH (21:19)
[2017-10-01 06:40] VITALS: BP 153/76; PULSE 61; TEMP 37; O2SAT 95
[2017-10-01] MEDS: SERTRALINE HCL 100 MG TAB PO SCH (08:15)
[2017-10-01] MEDS: DILTIAZEM HCL (TIAzac) 180 MG CAPCR PO SCH (08:16)
[2017-10-01] MEDS: MICONAZOLE NITRATE POWDER 43 GM EXT SCH ×2 (08:16→21:36)
[2017-10-01] MEDS: GABAPENTIN 300 MG CAP PO SCH ×3 (08:16→21:38)
[2017-10-01] MEDS: DEXAMETHASONE 4 MG TAB PO SCH ×2 (08:16→21:39)
[2017-10-01] MEDS: EUCERIN CR 120 GM JAR EXT SCH ×2 (08:17→21:35)
[2017-10-01] MEDS: NYSTATIN POWDER 15GM BTL EXT SCH (08:17)
[2017-10-01] MEDS: LIDODERM (LIDOCAINE) PATCH 5% TD SCH (11:06)
--- NOTE | 2017-10-01 11:16 | Pain Management Consultation ---
Pain Management Consultation Date of Consultation Oct 01, 2017. Reason for Consultation back pain Pain Location 1 - 2 - History This is a 76 y/o white female that is well known to the [facility] with sacroiliitis, chronic lumbago, sacroiliitis, and lumbar spinal canal stenosis. Patient has been admitted to the [facility] for confusion and increased low back pain. Patient was recently seen in the pain clinic on 09/23/17 for the return of the low back pain. Patient is scheduled for an L4-5 interlaminar HUSSEIN next month. Patient states that her back pain is not her predominant pain today. The worst pain is of the right hip. She describes a sharp stabbing pain that is aggravated with laying on her right side and with sitting. Laying supine does moderately alleviate the pain. Patient does not denies radicular symptoms into the legs today. She reports significant sleep disturbances due to pain. Currently she is using Lidocaine patch, Gabapentin 300mg TID, and Decadron. Patient typically take Tramadol for pain. According to PDMP, she is utilizing Tramadol 50mg #8 tablets daily. Patient has been able to ambulate around the room with the use of her walker. She denies any bowel/bladder incontinence, saddle anesthesia, leg weakness, foot drop, falls. Case discussed with Dr. Luna Past Medical/Surgical History (1) Generalized anxiety disorder (2) Depression (3) Hyperlipidemia (4) Hypertension (5) Obesity (6) Altered mental status (7) Back pain (8) H/O shoulder replacement (9) S/P tonsillectomy and adenoidectomy (10) History of knee replacement (11) Generalized osteoarthritis (12) Insomnia Family History FH: hyperlipidemia Hypertension Social / Work History Smokeless Tobacco Use: No Alcohol Use: none Drug Use: none Marital Status: single Housing Status: lives alone Occupation: retired Allergies Coded Allergies: Morphine (Verified Allergy, Severe, SHORTNESS OF BREATH, 09/29/17) Acetaminophen (Verified Allergy, Intermediate, RASH, 09/29/17) Cephalexin (Verified Allergy, Intermediate, RASH, 09/29/17) Hydrocodone (Verified Allergy, Intermediate, RASH, 09/29/17) Oxaprozin (Verified Allergy, Intermediate, RASH, 09/29/17) Sulindac (Verified Allergy, Intermediate, RASH, 09/29/17) Vancomycin (Verified Allergy, Unknown, kidney failure, 09/29/17) Lovastatin (Verified Adverse Reaction, Mild, GI SYMPTOMS, 09/29/17) Medications Current Inpatient Medications Medications (Trade) Dose Ordered Sig/Aaron Route Start Time Stop Time Status Last Admin Dose Admin Al Hydrox/Mg Hydrox/Simethicone (Maalox Max Susp) 15 ml Q4H PRN PO 09/29/17 19:00 10/29/17 18:59 Magnesium Hydroxide (Milk Of Magnesia Susp) 30 ml Q12H PRN PO 09/29/17 19:00 10/29/17 18:59 Ondansetron HCl (Zofran Inj) 4 mg Q6H PRN IV 09/29/17 19:00 10/29/17 18:59 09/30/17 23:41 4 MG Polyethylene (Miralax Powder Packet) 17 gm DAILY PRN PO 09/29/17 19:00 10/29/17 18:59 Diltiazem HCl (TIAzac CAP) 180 mg DAILY PO 09/30/17 09:00 10/30/17 08:59 10/01/17 08:16 180 MG Pravastatin Sodium (Pravachol Tab) 80 mg HS PO 09/29/17 21:00 10/29/17 20:59 09/30/17 21:19 80 MG Sertraline HCl (Zoloft Tab) 100 mg DAILY PO 09/30/17 09:00 10/30/17 08:59 10/01/17 08:15 100 MG Miconazole Nitrate (Desenex Powder) 1 appln BID EXT 09/29/17 21:00 10/29/17 20:59 10/01/17 08:16 1 APPLN Nystatin (Mycostatin Powder) 1 appln DAILY EXT 09/30/17 09:00 10/30/17 08:59 10/01/17 08:17 1 APPLN Miscellaneous (Iv Fluids Completed) 1 ea PRN PRN N/A 09/29/17 21:45 09/29/18 21:44 Dexamethasone (Decadron Tab) 4 mg BID PO 09/30/17 21:00 10/30/17 20:59 10/01/17 08:16 4 MG Gabapentin (Neurontin Cap) 300 mg TID PO 09/30/17 14:00 10/30/17 13:59 10/01/17 08:16 300 MG Multi-Ingredient Ointment (Eucerin Unscented Cr) 1 appln BID EXT 09/30/17 21:00 10/30/17 20:59 10/01/17 08:17 1 APPLN Lidocaine (Lidoderm Patch 5%) 1 patch QAM TD 10/01/17 09:00 10/30/17 20:59 09/30/17 17:20 1 PATCH Miscellaneous (Remove Lidoderm Patch) 1 ea HS N/A 09/30/17 21:00 10/30/17 08:59 Review of Systems Denies any constitutional, cardiac, pulmonary, neurological, GI, , extremity, endocrine, neuro, ENT, dermatological, or musculoskeletal complaints other than stated in HPI Physical Exam Height & Weight: Height 5 feet, 1.50 inches. Weight 118.600 (Kilograms) 261 (Pounds) Last Vital Signs Documentation Date Time Temp Pulse Resp B/P (MAP) Pulse Ox O2 Delivery O2 Flow Rate FiO2 10/01/17 08:00 Room Air 10/01/17 06:40 37.0 61 18 153/76 (101) 95 Exam: GENERAL: This is a 76 y/o white female that appears her stated age. Mood and affect is appropriate. Patient's mentation is at baseline this morning. HEAD: Normocephalic; atraumatic. EYES: Pupils are round, equal, and reactive to light; EOM intact. CHEST: Regular chest respiration and excursion. EXTREMITIES: + chronic edema of the lower legs. There is 5/5 strength of the bilateral legs. There is moderate tenderness of the right greater trochanteric bursa. BACK: Loss of lumbar lordosis. There is mild diffuse lumbar tenderness. No muscle spasm noted. NEURO: CN II-XII grossly intact with no focal deficits noted. Patient is up standing and walking without difficulty. SKIN: No lesions, erythema, or rashes noted. Laboratory Laboratory Results (Last CBC): 09/29/17 15:07 Red Blood Count 4.84, Mean Corpuscular Volume 87.6, Mean Corpuscular Hemoglobin 29.1, Mean Corpuscular Hemoglobin Concent 33.3, Mean Platelet Volume 9.7, Neutrophils (%) (Auto) 64.8, Lymphocytes (%) (Auto) 26.7, Monocytes (%) (Auto) 7.8, Eosinophils (%) (Auto) 0.0, Basophils (%) (Auto) 0.5, Neutrophils # (Auto) 4.02, Lymphocytes # (Auto) 1.65, Monocytes # (Auto) 0.48, Eosinophils # (Auto) 0.00, Basophils # (Auto) 0.03 Imaging MRI Findings LUMBAR SPINE W/O CONTRAST CLINICAL HISTORY: 76 years-old Female with lower back pain . Acute low back pain without known injury COMPARISON: Lumbar spine radiographs 09/29/2017, MRI lumbar spine 01/16/2015. TECHNIQUE: Multiplanar, multi sequence MRI of the lumbar spine was performed without intravenous contrast. FINDINGS: Study is motion degraded. Patient obesity is noted. T2 hyperintense lesions of the left kidney are seen measuring up to 4.0 cm, possibly reflecting renal cysts. No aortic aneurysm identified. No pathologic adenopathy is seen. There is dextroscoliosis of the lumbar spine. 8 mm anterolisthesis L4 on L5 is unchanged. Endplate degenerative changes at the L4-L5 level also appears unchanged. No acute fracture or subluxation identified. 11 mm synovial cyst is noted posterior to the right L4-L5 facet. Signal within the imaged thoracic spinal cord is within normal limits. Conus medullaris terminates at the L1 level. Cauda equina appear unremarkable. The axial images are severely motion degraded. Gallbladder appears distended. T12-L1: Mild intervertebral disc space narrowing with posterior spondylitic spurring and moderate circumferential annular disc bulge causing mild central canal narrowing, this appears to have slightly progressed. There is also moderate facet arthrosis at this level. L1-L2: Mild intervertebral disc space narrowing with posterior spondylitic spurring, small circumferential annular disc bulge with moderate facet arthrosis and ligament of flavum thickening. Flattening of the ventral thecal sac without significant central canal stenosis. Mild bilateral foraminal narrowing. No significant change. L2-L3: Mild intervertebral disc space narrowing with posterior spondylitic spurring and small to moderate circumferential annular disc bulge and ligament of flavum thickening. Moderate facet arthropathy. There is flattening of the ventral thecal sac without significant central canal narrowing. There is moderate bilateral foraminal narrowing, not significantly change. L3-L4: Mild intervertebral disc space narrowing with posterior spondylitic spurring and circumferential annular disc bulge. Moderate facet arthrosis with ligamentum flavum thickening. Mild central canal, severe right and moderate to severe left foraminal stenosis. L4-L5: Moderate intervertebral disc space narrowing with posterior spondylitic spurring and disc space uncovering, possibly with central disc protrusion, evaluation limited secondary to motion artifact. Severe facet arthrosis and ligamentum flavum thickening with severe central canal narrowing and severe bilateral foraminal narrowing. L5-S1: Mild intervertebral disc space narrowing with spondylitic spurring, small posterior disc bulge and moderate facet arthrosis with ligamentum flavum thickening. No central canal stenosis. There is moderate bilateral foraminal narrowing, mildly worsened. IMPRESSION: 1. Very limited study secondary to patient motion. No acute fracture or subluxation identified. 2. 8 mm anterolisthesis L4 on L5 is unchanged, likely secondary to long-standing facet arthropathy. There is severe central canal with severe bilateral foraminal stenosis at this level. 3. Additional discogenic degenerative changes as described in detail above. The above report was generated using voice recognition software. It may contain grammatical, syntax or spelling errors. Electronically signed by: Juan Walker M.D. 09/29/2017 5:34 PM Dictated Date/Time: 09/29/2017 5:23 PM [place] Drug Monitoring Program Search Results: patient reviewed within database Assessment 1. Severe stenosis at L4-5 2. Right greater trochanteric bursitis 3. Recent confusion - resolved Recommendations 1. Recommend continuing the Lidocaine patch, Gabapentin and Decadron. 2. Will initiate the patient back on Tramadol but at 50mg x 4 hours. Monitor for confusion. 3. Her mentation is back to baseline. 4. Would like the patient to see pain management for follow up after discharge. She is ambulating with minimal difficulty and ready to be discharged in the next day or two.
[2017-10-01] MEDS ORDERED: TRAMADOL HCL 50 MG TAB PO PRN (13:00)
[2017-10-01 15:18] VITALS: BP 152/65; PULSE 64; TEMP 37.1; O2SAT 90
--- NOTE | 2017-10-01 16:35 | Hospitalist Progress Note ---
Hospitalist Progress Note Date of Service Oct 01, 2017. (Rebeca Hoffman .ELBA) Subjective Pt evaluation today including: conversation w/ patient, physical exam, chart review, lab review, review of inpatient medication list Voiding: no voiding problems Ms. Bean's pain has improved today though she does still have some pain in her back and right hip. She is oriented but her speech is rambling and takes a bit to redirect her to stay on topic ROS Constitutional: no chills, aches, sweats or fever Respiratory: no sob,cough, sputum, or wheezing Cardiac: no chest pain, palpitations, edema, orthopnea or lightheadedness GI: no abdominal pain, nausea, vomiting, diarrhea or constipation : no dysuria or hesitancy Extremities: see HPI Skin: no rash All other systems reviewed and negative (Rebeca Hoffman CRNP) Medications Medications Administered Medications (Trade) Dose Ordered Sig/Aaron Route Start Time Stop Time Status Last Admin Dose Admin Hydromorphone HCl (Dilaudid Inj) 0.5 mg NOW STAT IV 09/29/17 14:42 09/29/17 14:44 DC 09/29/17 15:08 0.5 MG Ondansetron HCl (Zofran Inj) 4 mg NOW STAT IV 09/29/17 14:42 09/29/17 14:44 DC 09/29/17 15:08 4 MG Sodium Chloride 1,000 ml @ 80 mls/hr [id number] IV 09/29/17 20:30 09/30/17 14:03 DC 09/30/17 10:51 80 MLS/HR Ondansetron HCl (Zofran Inj) 4 mg Q6H PRN IV 09/29/17 19:00 10/29/17 18:59 09/30/17 23:41 4 MG Diltiazem HCl (TIAzac CAP) 180 mg DAILY PO 09/30/17 09:00 10/30/17 08:59 10/01/17 08:16 180 MG Pravastatin Sodium (Pravachol Tab) 80 mg HS PO 09/29/17 21:00 10/29/17 20:59 09/30/17 21:19 80 MG Sertraline HCl (Zoloft Tab) 100 mg DAILY PO 09/30/17 09:00 10/30/17 08:59 10/01/17 08:15 100 MG Miconazole Nitrate (Desenex Powder) 1 appln BID EXT 09/29/17 21:00 10/29/17 20:59 10/01/17 08:16 1 APPLN Lidocaine (Lidoderm Patch 5%) 1 patch 1922 ONCE TD 09/29/17 19:22 09/29/17 19:42 DC 09/29/17 20:04 1 PATCH Miscellaneous (Remove Lidoderm Patch) 1 ea DAILY@0900 N/A 09/30/17 09:00 09/30/17 16:49 DC 09/30/17 09:22 1 EA Nystatin (Mycostatin Powder) 1 appln DAILY EXT 09/30/17 09:00 10/30/17 08:59 10/01/17 08:17 1 APPLN Dexamethasone (Decadron Tab) 4 mg BID PO 09/30/17 21:00 10/30/17 20:59 10/01/17 08:16 4 MG Dexamethasone (Decadron Tab) 4 mg 1143 ONCE PO 09/30/17 11:43 09/30/17 12:17 DC 09/30/17 13:34 4 MG Gabapentin (Neurontin Cap) 300 mg TID PO 09/30/17 14:00 10/30/17 13:59 10/01/17 13:57 300 MG Multi-Ingredient Ointment (Eucerin Unscented Cr) 1 appln BID EXT 09/30/17 21:00 10/30/17 20:59 10/01/17 08:17 1 APPLN Lidocaine (Lidoderm Patch 5%) 1 patch QAM TD 10/01/17 09:00 10/30/17 20:59 10/01/17 11:06 1 PATCH (Rebeca Hoffman CRNP) Objective Vital Signs Date Time Temp Pulse Resp B/P (MAP) Pulse Ox O2 Delivery O2 Flow Rate FiO2 10/01/17 15:18 37.1 64 18 152/65 (94) 90 Room Air 10/01/17 08:00 Room Air 10/01/17 06:40 37.0 61 18 153/76 (101) 95 Room Air 10/01/17 00:00 Room Air 09/30/17 23:05 36.8 63 18 151/69 (96) 92 Room Air 09/30/17 19:34 36.7 79 22 150/74 (99) 91 Room Air (Rebeca Hoffman CRNP) Physical Exam Notes: General: no distress Eyes: normal inspection, PERLL Respiratory: chest non tender, clear to auscultation, normal breath sounds, no respiratory distress, no accessory muscle use Cardiac: regular rate and rhythm, no rub or gallop, no murmur, no edema, no jvd GI/: active bowel sounds, no abd pain or tenderness, soft, non distended Extremities: normal range of motion, normal strength, non tender Neuro/Psych: alert and oriented x 3, normal mood and affect Skin: normal color, dry (Rebeca Hoffman CRNP) Laboratory Results 09/29/17 15:07 Red Blood Count 4.84, Mean Corpuscular Volume 87.6, Mean Corpuscular Hemoglobin 29.1, Mean Corpuscular Hemoglobin Concent 33.3, Mean Platelet Volume 9.7, Neutrophils (%) (Auto) 64.8, Lymphocytes (%) (Auto) 26.7, Monocytes (%) (Auto) 7.8, Eosinophils (%) (Auto) 0.0, Basophils (%) (Auto) 0.5, Neutrophils # (Auto) 4.02, Lymphocytes # (Auto) 1.65, Monocytes # (Auto) 0.48, Eosinophils # (Auto) 0.00, Basophils # (Auto) 0.03 09/29/17 15:07 Test 09/29/17 15:07 09/29/17 15:21 09/29/17 19:13 White Blood Count 6.19 K/uL (4.8-10.8) Red Blood Count 4.84 M/uL (4.2-5.4) Hemoglobin 14.1 g/dL (12.0-16.0) Hematocrit 42.4 % (37-47) Mean Corpuscular Volume 87.6 fL (80-100) Mean Corpuscular Hemoglobin 29.1 pg (25-34) Mean Corpuscular Hemoglobin Concent 33.3 g/dl (32-36) Platelet Count 295 K/uL (130-400) Mean Platelet Volume 9.7 fL (7.4-10.4) Neutrophils (%) (Auto) 64.8 % Lymphocytes (%) (Auto) 26.7 % Monocytes (%) (Auto) 7.8 % Eosinophils (%) (Auto) 0.0 % Basophils (%) (Auto) 0.5 % Neutrophils # (Auto) 4.02 K/uL (1.4-6.5) Lymphocytes # (Auto) 1.65 K/uL (1.2-3.4) Monocytes # (Auto) 0.48 K/uL (0.11-0.59) Eosinophils # (Auto) 0.00 K/uL (0-0.5) Basophils # (Auto) 0.03 K/uL (0-0.2) RDW Standard Deviation 44.8 fL (36.4-46.3) RDW Coefficient of Variation 13.9 % (11.5-14.5) Immature Granulocyte % (Auto) 0.2 % Immature Granulocyte # (Auto) 0.01 K/uL (0.00-0.02) Erythrocyte Sedimentation Rate 39 mm/hr (0-21) Anion Gap 9.0 mmol/L (3-11) Estimated GFR () 52.6 Estimated GFR (Non- 45.4 BUN/Creatinine Ratio 23.5 (10-20) Calcium Level 9.7 mg/dl (8.5-10.1) Total Bilirubin 0.8 mg/dl (0.2-1) Direct Bilirubin 0.2 mg/dl (0-0.2) Aspartate Amino Transf (AST/SGOT) 17 U/L (15-37) Alanine Aminotransferase (ALT/SGPT) 16 U/L (12-78) Alkaline Phosphatase 112 U/L (45-117) Total Protein 7.9 gm/dl (6.4-8.2) Albumin 3.7 gm/dl (3.4-5.0) Lipase 74 U/L (73-393) Thyroid Stimulating Hormone (TSH) 1.200 uIu/ml (0.300-4.500) Urine Color YELLOW Urine Appearance CLEAR (CLEAR) Urine pH 8.5 (4.5-7.5) Urine Specific [place] 1.009 (1.000-1.030) Urine Protein NEG (NEG) Urine Glucose (UA) NEG (NEG) Urine Ketones NEG (NEG) Urine Occult Blood NEG (NEG) Urine Nitrite NEG (NEG) Urine Bilirubin NEG (NEG) Urine Urobilinogen NEG (NEG) Urine Leukocyte Esterase NEG (NEG) Urine WBC (Auto) 0 /hpf (0-5) Urine RBC (Auto) 0-4 /hpf (0-4) Urine Hyaline Casts (Auto) 1-5 /lpf (0-5) Urine Epithelial Cells (Auto) 0-5 /lpf (0-5) Urine Bacteria (Auto) NEG (NEG) Vitamin B12 Level 368 pg/mL (211-911) Date/Time Source Procedure Growth Status 09/30/17 07:50 Urine , Clean Catch Urine Culture - Final THREE TYPES OF ORGANISMS PRESENT, ALL... Complete (Rebeca Hoffman CRNP) Assessment and Plan Ms. Bean is a 76 y/o female with PMHx of HTN, CKD Stage III, HLD, Sacral Ileitis, Spinal Stenosis with Radiculopathy who presents to the ED due to AMS and pain Possible Toxic Encephalopathy 2/2 Medications vs Other Encephalopathy/ chronic back pain - No obvious source of infection - does have chronic venous stasis and skin compromise of lower extremities but does not appear acute - will consult wound care - Appears euvolemic and is taking po - dc IVF - restart Lasix, continue Ativan, Tramadol, and Ambien but restart gabapentin, continue lidoderm patch; per pain management, restart Ultram at reduced dose - continue dexamethasone po 4mg bid - consult pain management HTN and HLD: - Diltiazem 180 mg daily; Lasix is on hold with gentle hydration - Continue pravastatin Dry skin - Eucerin cream DVT Prophylaxis: Heparin Code Status: FULL RESUSCITATION Disposition: PT/OT evaluations - patient will likely need some home health to help manage her medications as she is unable to remember how much she has been taking. 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 Discussed with ELBA Hoffman and agree with findings and plan as documented in the note. Any exceptions or clarifications are listed here: Patient reports some pain in the right hip, but was able to get up with PT today. Rambles on and on about traveling to [place] and her previous health insurance plan and costs of certain procedures, etc. When redirected, I think she was trying to tell me that it was hard for her to get her gabapentin filled as an outpatient. No other concerns. Vitals reviewed Obese, lying flat in bed, talkative and tangential and then apologizes for getting off topic when redirected RRR no mgr CTAB no wcr Abd +BS soft NT ND Ext chronic venous stasis changes, 1+ edema Neuro-moving all extremities 76 yo female with acute on chronic right lower back pain with radicular symptoms after being off gabapentin for 3 days, worsening confusion. Confusion may be due to withdrawal from gabapentin plus pain itself. Seems to be resolved now -Continue gabapentin 300 mg 3 times daily -Continue dexamethasone 4 mg's p.o. twice daily 1 more day and then begin to taper down over the next week -Restarted tramadol at a lower dose of 50 mg p.o. every 4 hours today as needed -Appreciate pain Man consult Hopeful for dc to home with tomorrow Documented By: Esperanza Blevins (Esperanza Blevins MD)
[2017-10-01] MEDS: PRAVASTATIN SOD 40 MG TAB PO SCH (21:38)
[2017-10-02 00:02] VITALS: BP 158/65; PULSE 59; TEMP 36.7; O2SAT 91
[2017-10-02 06:53] LABS: CALCIUM 9.4 mg/dl (8.5-10.1); CREATININE 1.15 mg/dl (0.60-1.20); POTASSIUM 4.4 mmol/L (3.5-5.1)
[2017-10-02 08:06] VITALS: BP 169/82; PULSE 61; TEMP 36.9; O2SAT 92
[2017-10-02] MEDS: SERTRALINE HCL 100 MG TAB PO SCH (08:38)
[2017-10-02] MEDS: GABAPENTIN 300 MG CAP PO SCH ×2 (08:39→14:40)
[2017-10-02] MEDS: DILTIAZEM HCL (TIAzac) 180 MG CAPCR PO SCH (08:39)
[2017-10-02] MEDS: NYSTATIN POWDER 15GM BTL EXT SCH (08:40)
[2017-10-02] MEDS: MICONAZOLE NITRATE POWDER 43 GM EXT SCH (08:41)
[2017-10-02] MEDS: EUCERIN CR 120 GM JAR EXT SCH (08:41)
[2017-10-02] MEDS: DEXAMETHASONE 4 MG TAB PO SCH (08:42)
[2017-10-02] MEDS: LIDODERM (LIDOCAINE) PATCH 5% TD SCH (08:43)
[2017-10-02] MEDS ORDERED: FUROSEMIDE 40 MG TAB PO SCH (09:00)
[2017-10-02] MEDS ORDERED: NRN300 PO (11:47)
[2017-10-02] MEDS ORDERED: ULT50X PO (11:47)
--- NOTE | 2017-10-02 11:51 | Discharge Instructions ---
Discharge Instructions Date of Service Oct 02, 2017. Admission Reason for Admission: Altered Mental Status Discharge Discharge Diagnosis / Problem: Altered Mental Status, back pain Discharge Goals Goal(s): Improve function, Increase independence Activity Recommendations Activity Limitations: resume your previous activity . Instructions / Follow-Up Instructions / Follow-Up Please follow up with your primary care provider within about a week I have reduced your Ultram dose and discontinued your Ativan and Ambien as these medications can all contribute to confusion. Current Hospital Diet Patient's current hospital diet: AHA Diet (Heart Healthy) Discharge Diet Recommended Diet: AHA Diet (Heart Healthy) Procedures Procedures Performed: Chest xray Femur Xray Pelvis Xray Head CT Lumbar Spine MRI Pending Studies Studies pending at discharge: yes List of pending studies: Urine culture Medical Emergencies . Who to Call and When: Medical Emergencies: If at any time you feel your situation is an emergency, please call 911 immediately. . Non-Emergent Contact Non-Emergency issues call your: Primary Care Provider . . "Provider Documentation" section prepared by Rebeca Hoffman. .
[2017-10-02 11:57] VITALS: BP 162/87; PULSE 58; TEMP 36.9; O2SAT 93
[2017-10-02] MEDS ORDERED: LDDP5 TD (11:57)
[2017-10-02] MEDS ORDERED: DXM4 PO (12:01)
--- NOTE | 2017-10-02 12:03 | Discharge Summary ---
Discharge Summary Date of Service Oct 02, 2017. Discharge Summary Admission Date: Oct 01, 2017 at 16:57 Discharge Date: Oct 02, 2017 Discharge Disposition: Home Principal Diagnosis: Toxic Encephalopathy, acute on chonic lumbar radiculopathy Problems/Secondary Diagnoses: HTN HLD Ichthyosis CKD Stage III Sacral Ileitis Spinal Stenosis with Radiculopathy Anxiety disorder, NOS Procedures: CT HEAD WITHOUT CONTRAST (CT) CLINICAL HISTORY: Acute change in mental status COMPARISON STUDY: No previous studies for comparison. TECHNIQUE: Axial CT of the brain is performed from the vertex to the skull base. IV contrast was not administered for this examination. A dose lowering technique was utilized adhering to the principles of ALARA. CT DOSE: 869.01 mGy.cm FINDINGS: No intra or extra-axial mass lesions are visualized. There is no CT evidence of acute cortical infarction. There is no evidence of midline shift. There is no acute hemorrhage. No calvarial fractures are visualized. There are moderate white matter hypodensities likely on a small vessel basis. There is no evidence of pathologic ventricular dilatation. There is mucosal disease within the sphenoid sinus. IMPRESSION: 1. No acute intracranial findings 2. Moderate white matter hypodensities likely on a small vessel basis 3. Sphenoid sinus mucosal thickening LUMBAR SPINE W/O CONTRAST CLINICAL HISTORY: 76 years-old Female with lower back pain . Acute low back pain without known injury COMPARISON: Lumbar spine radiographs 09/29/2017, MRI lumbar spine 01/16/2015. TECHNIQUE: Multiplanar, multi sequence MRI of the lumbar spine was performed without intravenous contrast. FINDINGS: Study is motion degraded. Patient obesity is noted. T2 hyperintense lesions of the left kidney are seen measuring up to 4.0 cm, possibly reflecting renal cysts. No aortic aneurysm identified. No pathologic adenopathy is seen. There is dextroscoliosis of the lumbar spine. 8 mm anterolisthesis L4 on L5 is unchanged. Endplate degenerative changes at the L4-L5 level also appears unchanged. No acute fracture or subluxation identified. 11 mm synovial cyst is noted posterior to the right L4-L5 facet. Signal within the imaged thoracic spinal cord is within normal limits. Conus medullaris terminates at the L1 level. Cauda equina appear unremarkable. The axial images are severely motion degraded. Gallbladder appears distended. T12-L1: Mild intervertebral disc space narrowing with posterior spondylitic spurring and moderate circumferential annular disc bulge causing mild central canal narrowing, this appears to have slightly progressed. There is also moderate facet arthrosis at this level. L1-L2: Mild intervertebral disc space narrowing with posterior spondylitic spurring, small circumferential annular disc bulge with moderate facet arthrosis and ligament of flavum thickening. Flattening of the ventral thecal sac without significant central canal stenosis. Mild bilateral foraminal narrowing. No significant change. L2-L3: Mild intervertebral disc space narrowing with posterior spondylitic spurring and small to moderate circumferential annular disc bulge and ligament of flavum thickening. Moderate facet arthropathy. There is flattening of the ventral thecal sac without significant central canal narrowing. There is moderate bilateral foraminal narrowing, not significantly change. L3-L4: Mild intervertebral disc space narrowing with posterior spondylitic spurring and circumferential annular disc bulge. Moderate facet arthrosis with ligamentum flavum thickening. Mild central canal, severe right and moderate to severe left foraminal stenosis. L4-L5: Moderate intervertebral disc space narrowing with posterior spondylitic spurring and disc space uncovering, possibly with central disc protrusion, evaluation limited secondary to motion artifact. Severe facet arthrosis and ligamentum flavum thickening with severe central canal narrowing and severe bilateral foraminal narrowing. L5-S1: Mild intervertebral disc space narrowing with spondylitic spurring, small posterior disc bulge and moderate facet arthrosis with ligamentum flavum thickening. No central canal stenosis. There is moderate bilateral foraminal narrowing, mildly worsened. IMPRESSION: 1. Very limited study secondary to patient motion. No acute fracture or subluxation identified. 2. 8 mm anterolisthesis L4 on L5 is unchanged, likely secondary to long-standing facet arthropathy. There is severe central canal with severe bilateral foraminal stenosis at this level. 3. Additional discogenic degenerative changes as described in detail above. Electronically signed by: Juan Walker M.D. 09/29/2017 5:34 PM CHEST ONE VIEW PORTABLE CLINICAL HISTORY: Acute change in mental status COMPARISON STUDY: No previous studies for comparison. FINDINGS: The heart is mildly enlarged. There is slight interstitial prominence without evidence of overt failure. There is no focal pulmonary consolidation. There are no pleural effusions. There are postsurgical changes right shoulder arthroplasty.[ IMPRESSION: 1. Mild cardiomegaly and interstitial prominence 2. No evidence of focal pulmonary consolidation Electronically signed by: Enmanuel Kay M.D. 09/29/2017 4:13 PM R FEMUR 2 VIEWS ROUTINE CLINICAL HISTORY: Right femur pain COMPARISON: None. DISCUSSION: No fractures are visualized. There are no dislocations. No destructive lesions are evident. There are postsurgical changes of a right knee arthroplasty. IMPRESSION: 1. Postsurgical changes 2. No fractures identified Electronically signed by: Enmanuel Kay M.D. 09/29/2017 4:16 PM [~ rep ct add3]] LUMBAR SPINE 2 OR 3 VIEWS CLINICAL HISTORY: lower back pain COMPARISON STUDY: No previous studies for comparison. FINDINGS: No acute fractures are visualized. There is marked disc space narrowing at the L4-5 level. There is a grade 2 spondylolisthesis of L4 on L5. IMPRESSION: 1. No acute fractures 2. Grade 2 spondylolisthesis of L4 on L5 3. Disc space narrowing at the L4-5 level Electronically signed by: Enmanuel Kay M.D. 09/29/2017 4:15 PM PELVIS 1 OR 2 VIEW ROUTINE CLINICAL HISTORY: Right hip pain COMPARISON STUDY: No previous studies for comparison. FINDINGS: Degenerative changes are present within the lower lumbar spine. No fractures are visualized. The joint spaces of each hip appear relatively well preserved for age. No fractures are evident. IMPRESSION: 1. No evidence of fracture. 2. No erosive or destructive changes are visualized Electronically signed by: Enmanuel Kay M.D. 09/29/2017 4:14 PM Consultations: Kandice Ornelas from Pain Management Medication Reconciliation New Medications: Dexamethasone (Dexamethasone) 4 Mg Tab 4 MG PO BID for 2 Days, #3 TAB Gabapentin (Gabapentin) 300 Mg Cap 300 MG PO TID for 30 Days, #90 CAP Lidocaine (Lidocaine) 1 Patch Tdsy 1 PATCH TD QAM for 30 Days, #30 PATCH Tramadol HCl (Tramadol HCl) 50 Mg Tab 50 MG PO Q4H PRN for Pain for 3 Days, #12 TAB Continued Medications: Diltiazem Hcl Ext Rel (Tiazac) 180 Mg Capcr 180 MG PO DAILY, CAP Epinephrine (Epipen) 0.3 Mg/0.3 Ml Inj 0.3 MG IM UD Furosemide (Lasix) 40 Mg Tab 40 MG PO DAILY, TAB Pravastatin (Pravachol ) 20 Mg Tab 80 MG PO HS, TAB Sertraline (Zoloft) 100 Mg Tab 100 MG PO DAILY, TAB Discontinued Medications: Gabapentin (Neurontin) 100 Mg Cap 200 MG PO TID, CAP Lorazepam (Ativan) 0.5 Mg Tab 0.5 MG PO DIRECTED, TAB Tramadol (Ultram) 50 Mg Tab 50 MG PO Q4H PRN for Pain, TAB Zolpidem Tartrate (Zolpidem Tartrate) 5 Mg Tab 5 MG OR HS Discharge Exam ROS Constitutional: no chills, aches, sweats or fever Respiratory: no sob,cough, sputum, or wheezing Cardiac: no chest pain, palpitations, edema, orthopnea or lightheadedness GI: no abdominal pain, nausea, vomiting, diarrhea or constipation : no dysuria or hesitancy Extremities: no joint pain or weakness Skin: no rash All other systems reviewed and negative General: no distress Eyes: normal inspection, PERLL Respiratory: chest non tender, clear to auscultation, normal breath sounds, no respiratory distress, no accessory muscle use Cardiac: regular rate and rhythm, no rub or gallop, no murmur, no edema, no jvd GI/: active bowel sounds, no abd pain or tenderness, soft, non distended Extremities: normal range of motion, normal strength, non tender Neuro/Psych: alert and oriented x 3, normal mood and affect Skin: normal color, dry Hospital Course Ms. Bean is a 76 y/o female with PMHx of HTN, CKD Stage III, HLD, Sacral Ileitis, Spinal Stenosis with Radiculopathy who presents to the ED due to AMS and pain Possible Toxic Encephalopathy 2/2 Medications vs Other Encephalopathy/ chronic back pain - No obvious source of infection - does have chronic venous stasis and skin compromise of lower extremities but does not appear acute - will consult wound care - repeat urine culture pending - Appears euvolemic and is taking po - dc'd IVF - restarted Lasix, continue to hold Ativan, and Ambien - Patient apparently went without gabapentin over the weekend due to not getting script refilled which had been given to increase her dose - restarted gabapentin at higher dose of 300 mg TID, continue lidoderm patch; per pain management, restart Ultram at reduced dose 50 mg q4h prn. Patient has only needed one dose so far - given dexamethasone po 4mg bid - will continue for 2 more days for a 4 day burst - consult pain management - PT/OT yuliet felt she was safe for home - home health for help managing medications. HTN and HLD: - Diltiazem 180 mg daily; restarted lasix - Continue pravastatin Dry skin - Eucerin cream Total Time Spent: Greater than 30 minutes This includes examination of the patient, discharge planning, medication reconciliation, and communication with other providers. Discharge Instructions Please refer to the electronic Patient Visit Report (Discharge Instructions) for additional information. Follow-Up Dr. Armstrong on FridayOctober 13 at 11:30 am Fu with pain management Additional Copies To Sofiya Armstrong M.D. 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 Discussed with ELBA Hoffman and agree with findings and plan as documented in the note. Any exceptions or clarifications are listed here: Patient reports some pain in the right hip, but is much improved. Still seems nervous/anxious, but sitting in chair and ready for discharge Vitals reviewed Obese, sitting in chair RRR no mgr CTAB no wcr Abd +BS soft NT ND Ext chronic venous stasis changes, 1+ edema Neuro-moving all extremities Ext +TTP over right hip 76 yo female with acute on chronic right lower back pain with radicular symptoms after being off gabapentin for 3 days, worsening confusion secondary to toxic encephalopathy. This may be due to withdrawal from gabapentin plus pain itself; is also on ativan , Ambien, high doses of tramadol daily. Seems to be resolved now after holding ativan, ambien, restarting gabapentin and lower dose of tramadol -Continue gabapentin 300 mg 3 times daily -Continue dexamethasone 4 mg's p.o. twice daily for burst -ciontinue tramadol at a lower dose of 50 mg p.o. every 4 hours as needed -Appreciate pain Man consult-f/u as outpt -Discontinue AMbien, Ativan Stable for dc to home with home health today Documented By: Esperanza Blevins
[2017-10-02 14:04] VITALS: BP 162/87; PULSE 58; TEMP 36.9; O2SAT 93
== END 2017-10-02 15:10 | disposition home health service (06) | DRG 92 ==
LOC: C.EDB 14:13 → C.MED 19:06 → ENRESERV 19:35 → OBSVTOIN 10-01 16:57
PROVIDERS: ADMIT Family Medicine; ATTEND Family Medicine
DX: G92 Toxic encephalopathy (principal); Z68.42 Body mass index [BMI] 45.0-49.9, adult; M48.061 Spinal stenosis, lumbar region without neurogenic claudication; M54.16 Radiculopathy, lumbar region; M70.61 Trochanteric bursitis, right hip; M46.1 Sacroiliitis, not elsewhere classified; T40.4X5A Adverse effect of other synthetic narcotics, initial encounter; T42.4X5A Adverse effect of benzodiazepines, initial encounter; T42.6X5A Adverse effect of other antiepileptic and sedative-hypnotic drugs, initial encounter; I87.8 Other specified disorders of veins; L85.0 Acquired ichthyosis; I12.9 Hypertensive chronic kidney disease with stage 1 through stage 4 chronic kidney disease, or unspecified chronic kidney disease; N18.3 Chronic kidney disease, stage 3 (moderate); E78.5 Hyperlipidemia, unspecified; F32.9 Major depressive disorder, single episode, unspecified; F41.9 Anxiety disorder, unspecified; E66.9 Obesity, unspecified; Z51.81 Encounter for therapeutic drug level monitoring; Z79.899 Other long term (current) drug therapy; Z88.5 Allergy status to narcotic agent; Z88.6 Allergy status to analgesic agent; Z88.1 Allergy status to other antibiotic agents; Z88.8 Allergy status to other drugs, medicaments and biological substances; Z82.49 Family history of ischemic heart disease and other diseases of the circulatory system; Z83.49 Family history of other endocrine, nutritional and metabolic diseases